=== PATIENT | male | born 1945 | race Caucasian/White ===

== ENCOUNTER 2018-06-08 09:19 | Outpatient (REF) | payer MEDICARE, SELFPAY ==
[2018-06-08 14:07] LABS: ALT 80 U/L (12-78); AST 94 U/L (15-37); Alkaline Phosphatase 75 U/L (46-116); Anion Gap 9.2 mmol/L (3-11); BUN 20 mg/dL (7-18); Bilirubin, Total 0.8 mg/dL (0.2-1.0); CO2 27.8 mmol/L (21.0-32.0); CREATININE 0.99 mg/dL (0.70-1.30); Calcium 9.1 mg/dL (8.5-10.1); Chloride 104 mmol/L (98-107); Glucose 92 mg/dL (70-100); Sodium 141 mmol/L (136-145); Total Protein 7.6 g/dL (6.4-8.2)
[2018-06-08 16:02] LABS: Iron 193 ug/dL (50-175); Total Iron Binding Capacity 320 ug/dL (250-450); Transferrin Sat 60 % (20-55)
[2018-06-08 16:27] LABS: Ferritin 528 ng/mL (8-388)
[2018-06-09 10:20] LABS: HBs Antibody, Quant <3.1 mIU/mL; Hepatitis B Surface Ab Negative; Hepatitis C Ab w Rflx HCV PCR Negative (NEGAT)
[2018-06-09 10:29] LABS: Hepatitis B Surface Ag Negative (NEGAT)
== END 2018-06-08 09:39 ==
LOC: NCHCN 09:19
PROVIDERS: PCP Nurse Practitioner Family; Visit Provider Internal Medicine
DX: I10 Essential (primary) hypertension (principal); I83.90 Asymptomatic varicose veins of unspecified lower extremity; R94.5 Abnormal results of liver function studies; I87.2 Venous insufficiency (chronic) (peripheral); Z11.59 Encounter for screening for other viral diseases
CPT/HCPCS: 80053; 86706; 86803; 87340; 82728; 83540; 83550

== ENCOUNTER 2018-06-22 09:30 | Outpatient (REF) | payer MEDICARE, SELFPAY ==
[2018-06-22 14:06] LABS: Abs Immature Grans 0.01 k/cumm (0.0-0.09); Absolute Basophil Count 0.03 k/cumm (0.0-0.2); Absolute Eosinophil Count 0.13 k/cumm (0.0-0.7); Absolute Monocyte Count 0.38 k/cumm (0.11-0.7); Absolute Neutrophil Count 1.85 k/cumm (1.2-6.7); Basophils % 0.9; Eosinophils % 3.9; HCT 43.6 % (40.0-50.0); HGB 14.7 g/dL (13.5-17.5); Immature Grans % 0.3; Lymphocytes % 27.3; Mean Corp. HGB Concentration 33.7 g/dL (32.0-36.0); Mean Corpuscular Hemoglobin 37.2 pg (27.0-33.0); Mean Corpuscular Volume 110.4 fL (80-95); Monocytes % 11.5; Neutrophils % 56.1; Platelet Count 201 x1000/uL (130-400); RBC 3.95 m/cumm (4.50-6.00); RBC Distribution Width 13.2 % (11.8-14.1)
[2018-06-22 14:42] LABS: Diff Comment RBC Morph Reviewed; Macrocytosis 3+
[2018-06-22 14:51] LABS: Iron 159 ug/dL (50-175); Total Iron Binding Capacity 309 ug/dL (250-450); Transferrin Sat 51 % (20-55)
[2018-06-22 14:57] LABS: ALT 49 U/L (12-78); AST 57 U/L (15-37); Alkaline Phosphatase 76 U/L (46-116); Bilirubin, Direct 0.21 mg/dL (0.00-0.20); Bilirubin, Total 0.7 mg/dL (0.2-1.0); Total Protein 7.3 g/dL (6.4-8.2)
[2018-06-22 15:22] LABS: Ferritin 384 ng/mL (8-388)
[2018-06-26 03:20] LABS: Specimen WB Whole Blood
== END 2018-06-22 09:50 ==
LOC: NCHCN 09:30
PROVIDERS: PCP Nurse Practitioner Family; Visit Provider Internal Medicine
DX: R94.5 Abnormal results of liver function studies (principal); R79.0 Abnormal level of blood mineral; E83.118 Other hemochromatosis
CPT/HCPCS: 80076; 81256; 82728; 83540; 83550; 85025

== ENCOUNTER 2018-12-03 15:44 | Outpatient (REF) | payer MEDICARE, BC, SELFPAY ==
[2018-12-03 21:39] LABS: HGB 14.8 g/dL (13.5-17.5); Mean Corp. HGB Concentration 34.4 g/dL (32.0-36.0); Mean Corpuscular Volume 110.5 fL (80-95); Mean Platelet Volume 10.6 fL (8.0-11.0); Platelet Count 211 x1000/uL (130-400); RBC 3.89 m/cumm (4.50-6.00); RBC Distribution Width 14.9 % (11.8-14.1); White Blood Cell Count 4.91 k/cumm (4.4-10.8)
[2018-12-03 22:07] LABS: ALT 22 U/L (16-63); AST 23 U/L (15-37); Albumin 3.8 g/dL (3.4-5.0); Alkaline Phosphatase 88 U/L (46-116); Bilirubin, Total 1.1 mg/dL (0.2-1.0); Total Protein 8.1 g/dL (6.4-8.2); Vitamin B12 247 pg/mL (193-986)
[2018-12-03 22:30] LABS: Bilirubin, Direct 0.28 mg/dL (0.00-0.20)
== END 2018-12-03 16:04 ==
LOC: NCHCN 15:44
PROVIDERS: PCP Nurse Practitioner Family; Visit Provider Internal Medicine
DX: D75.89 Other specified diseases of blood and blood-forming organs (principal); R79.0 Abnormal level of blood mineral; R94.5 Abnormal results of liver function studies
CPT/HCPCS: 80076; 85027; 82607

== ENCOUNTER 2018-12-14 00:32 | Outpatient (CLI) | payer MEDICARE, BC, SELFPAY ==
--- NOTE | 2018-12-14 08:00 | DI.US_ITS ---
SYMPTOM/DIAGNOSIS: ABNL LFT'S R94.5 ABDOMINAL ULTRASOUND: 12/14 The visualized liver parenchyma is normal in appearance. There is no evidence of cholelithiasis or biliary dilatation. Note is made of mass-like area of heterogeneous decreased echogenicity of the pancreatic mid body measuring up to about 4.5 cm in diameter. The possibility of pancreatic mass is raised. Correlation with CT recommended. The kidneys are unremarkable in appearance with no evidence of urinary tract calcification or obstruction. The spleen appears normal. Abdominal aorta and IVC are of normal diameter. CONCLUSION: No evidence of cholelithiasis or biliary dilatation. Incidental finding of suspected mass of the body of the pancreas. Correlation with CT recommended.
== END 2018-12-14 00:52 ==
PROVIDERS: PCP Nurse Practitioner Family; Visit Provider Internal Medicine
DX: R94.5 Abnormal results of liver function studies (principal); K86.89 Other specified diseases of pancreas
CPT/HCPCS: 76700

== ENCOUNTER 2018-12-21 00:58 | Outpatient (CLI) | payer MEDICARE, BC, SELFPAY ==
[2018-12-21] MEDS: Omnipaque 350 MG/ML 100 ML BTL IV (08:30)
[2018-12-21] MEDS: Omnipaque 350 MG/ML 50 ML BTL PO (08:45)
--- NOTE | 2018-12-21 08:49 | DI.CT_ITS ---
EXAM: CT ABDOMEN W CLINICAL HISTORY: OTHER SPECIFIED DISEASE OF PANCREAS, K86.89 TECHNIQUE: CT examination of the abdomen was performed with a bolus infusion of 100 cc of Omnipaque 350. COMPARISON: US ABDOMEN from 12/14/2018 FINDINGS: Images obtained through the lung bases are unremarkable. Liver and spleen are unremarkable in appea nicki. Adrenals and kidneys are unremarkable. Abdominal aorta is of normal diameter and no major va scular abnormality is seen. Recent ultrasound showed heterogeneous mass of the mid pancreatic body. This is again identified on CT and is of relatively low and fairly homogeneous attenuation. This appears to arise from or adjace nt to the body of the pancreas and encases branches of the superior mesenteric vein. This measures a bout 6 x 3 cm in diameter on transaxial images. No retroperitoneal adenopathy identified. Pancreati c duct is normal in appearance. Gallbladder is normal. IMPRESSION: Indeterminate pancreatic mass, additional evaluation with pancreatic MRI recommended.
== END 2018-12-21 01:18 ==
PROVIDERS: PCP Nurse Practitioner Family; Visit Provider Internal Medicine
DX: K86.89 Other specified diseases of pancreas (principal)
CPT/HCPCS: 74160; J3490; Q9967

== ENCOUNTER 2019-06-07 12:12 | Outpatient (REF) | payer MEDICARE, BC, SELFPAY ==
[2019-06-07 21:47] LABS: ALT 69 U/L (16-63); AST 93 U/L (15-37); Alkaline Phosphatase 100 U/L (46-116); Anion Gap 10.7 mmol/L (3-11); BUN 10 mg/dL (7-18); Bilirubin, Total 0.6 mg/dL (0.2-1.0); CO2 28.3 mmol/L (21.0-32.0); CREATININE 0.84 mg/dL (0.70-1.30); Chloride 105 mmol/L (98-107); Glucose 102 mg/dL (74-106); Potassium 4.4 mmol/L (3.5-5.1); Sodium 144 mmol/L (136-145); Total Protein 7.6 g/dL (6.4-8.2)
== END 2019-06-07 12:32 ==
LOC: NCHCN 12:12
PROVIDERS: PCP Nurse Practitioner Family; Visit Provider Internal Medicine
DX: I10 Essential (primary) hypertension (principal)
CPT/HCPCS: 80053

== ENCOUNTER 2019-12-17 04:29 | Outpatient (CLI) | payer MEDICARE, BC, SELFPAY ==
--- NOTE | 2019-12-17 | DI.CTLCSR_ITS ---
EXAM: CT CHEST LUNG CANCER SCREEN CLINICAL HISTORY: FORMER SMOKER Z87.891, SCREENING FOR CANCER Z12.9 TECHNIQUE: Imaging Protocol: Axial computed tomography images with coronal and sagittal reformatted images were created and reviewed COMPARISON: No exams were available for comparison FINDINGS: Tracheobronchial tree: Patent where visualized. Mediastinum and Cherelle: No dominant adenopathy or fluid collection. Pulmonary parenchyma: No consolidation or dominant measurable mass. Mild to moderate centrilobular em physema greatest in the superior segment of the right lower lobe. Lung Nodules: None. Pleura: No effusion or pneumothorax. Heart: The heart is not dilated. Mild coronary artery calcifications are seen. Aorta: Thoracic aorta non-dilated.Mild calcification Upper abdomen: Unremarkable. Bones: Mild degenerative disc changes. Soft Tissues: Bilateral gynecomastia IMPRESSION: [id number] centrilobular emphysema. No mass or pulmonary nodules. Lung RADS Cat 1 - Negative: No nodules and definitely benign nodules modifier S Lung-RADS 1.0 CATEGORIES: Category 0 - Prior chest CT exam(s) being located for comparison. Category 1 - Annual screening in 12 months. No nodules or definitely benign nodules. Category 2 - Annual screening in 12 months. Benign appearance. Nodules with low likelihood of becomin g active cancer. Category 3 - 6-month follow-up. Probably benign. Short-term follow-up suggested. Nodules with low lik elihood of becoming active cancer. Category 4A - 3-month follow-up and CT/PET if >8 mm in size. Suspicious finding. Findings which requi re additional testing. Category 4B - Findings which require additional testing and tissue sampling. Suspicious finding. C Added to Any of the Above - History of prior lung cancer screening. S Added to Any of the Above - Significant unexpected other finding. RADIATION DOSE DELIVERED: Total DLP DATA REPOSITORY: All CT scans at this facility are submitted to the National Radiology Data Registry (NRDR) Dose Index Registry (DIR) with the [employer] (ACR). RADIATION OPTIMIZATION: All CT scans at this facility use at least one of these dose optimization te chniques: automated exposure control; mA and/or kV adjustment per patient size (includes targeted exa ms where dose is matched to clinical indication); or iterative reconstruction.
== END 2019-12-17 04:49 ==
PROVIDERS: PCP Nurse Practitioner Family; Visit Provider Internal Medicine
DX: Z12.2 Encounter for screening for malignant neoplasm of respiratory organs (principal); Z87.891 Personal history of nicotine dependence; J43.2 Centrilobular emphysema
CPT/HCPCS: G0297

== ENCOUNTER 2020-07-24 01:38 | Emergency (ER) | payer MEDICARE, BC, SELFPAY ==
[2020-07-24] VITALS (32 sets, daily range): BP systolic 147–168; BP diastolic 70–105; PULSE 81–116; RESP 15–26; TEMP 36.7; O2SAT 95–99
--- NOTE | 2020-07-24 01:30 | RT.EKG_ITS ---
APPROVED REPORT Exam: Resting ECG Patient Location: E HR:108 bpm ECG Measurements Heart Rate 108 AXIS AL 171 P 78 QRSd 133 QRS -64 QT 373 T 47 QTc 500 Conclusion Sinus tachycardia...rate> 99 RBBB and LAFB...QRSd >120mS, axis(-40,240) Physician: miniml depression in V2 and V3, inverted T wave in V 1 and 2. RBBB. No stemi
--- NOTE | 2020-07-24 01:45 | DI.CT_ITS ---
EXAM: CT ABDOMEN PELVIS W CLINICAL HISTORY: hematemasis. TECHNIQUE: Imaging Protocol: Axial computed tomography images with coronal and sagittal reformatted images were created and reviewed CONTRAST MATERIAL: Intravenous: Omnipaque 100cc Oral: None COMPARISON: CT CT ABDOMEN W from 12/21/2018 FINDINGS: VISUALIZED LUNG BASES: No nodules nor pleural effusions evident. ABDOMEN: Lower esophagus wall in the field of view of this study is thickened. There is perihepatic ascites and there is also moderate amount of free fluid in the dependent aspect of the pelvis. LIVER: Liver appears somewhat cirrhotic. Abnormal prominent area of hypodensity in the right hepatic lobe is noted which may be fatty change but correlation blood work recommended. This requires follo w-up to rule out neoplasm. 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 No obvious gallstones. CBD is not dilated. PANCREAS: Abnormal appearance of the pancreatic head appearing edematous and there is pseudocyst form ation within the pancreas and extending into the lesser sac. This measures approximately 4 cm wide b y 1.8 cm AP by 4 cm cephalocaudal. SPLEEN: Spleen is slightly enlarged. There are no intrasplenic lesions. The splenic vein is patent behind the pancreatic body and tail but there is occlusion of the portal vein confluence. The superi or mesenteric vein is also thrombosed as is the main portal vein and there is cavernous transformatio n. Multiple varices are seen. ADRENALS: There are no significant adrenal masses. KIDNEYS:No cysts evident. No solid renal masses. No calculi nor hydronephrosis.. ABDOMINAL AORTA: Abdominal aorta is not enlarged. LYMPH NODES:There is no retroperitineal nor paraaortic adenopathy. ABDOMINAL WALL/GI: No evidence of significant anterior abdominal wall hernia. No bowel obstruction. PELVIS: GI: Appendix is filled with dense material. Appendix diameter is 7-8 millimeters.There is extensive sigmoid diverticulosis. No obvious acute diverticulitis.There is significant amount of fluid in the pelvis which I feel is most probably related to findings around the pancreas more so than the sigmoid . LYMPH NODES: There is no intrapelvic nor inguinal adenopathy. REPRODUCTIVE: Prostate is not enlarged. URINARY BLADDER: Uniform thickening of the urinary bladder wall is noted. OSSEOUS: No significant osseous lesions. IMPRESSION: 1. Severe acute pancreatitis including developing pancreatic pseudocyst at the level of the pancreati c neck which is both intra and extra parenchymal and extending into the lesser sac with measurements as described above. 2. 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 There are multiple varices including impressive gallbladder wall varices. 3. Abnormal hypodense right hepatic lobe area may or may not be related to the cavernous transformati on versus fatty parenchymal change versus possible developing neoplasm and this require close follow- up. 4. There is moderate amount of ascites in the upper abdomen and pelvis. Extensive sigmoid diverticulosis but no obvious acute diverticulitis. The appendix is filled with de nse material but there is no obvious evidence of acute appendicitis. RADIATION DOSE DELIVERED: 819.99mGy.cm Total DLP DATA REPOSITORY: All CT scans at this facility are submitted to the National Radiology Data Registry (NRDR) Dose Index Registry (DIR) with the [employer] (ACR). RADIATION OPTIMIZATION: All CT scans at this facility use at least one of these dose optimization te chniques: automated exposure control; mA and/or kV adjustment per patient size (includes targeted exa ms where dose is matched to clinical indication); or iterative reconstruction.
--- NOTE | 2020-07-24 02:05 | W.ED.GENAD ---
Discharge Plan Disposition Patient Disposition: [facility] Condition: Improving Discharge Details Clinical Impression: Hematemesis, Gastritis, Acute pancreatitis, Nausea & vomiting, Pancreatic pseudocyst Primary Care Provider: Vita Ortiz ED Provider: Nasim Jacobson Home Meds and New Rx's Prescriptions: No Action metoprolol succinate 50 mg tablet extended release 24 hr 50 mg PO DAILY RF: 0 naproxen sodium [Aleve] 220 mg Tablet 440 mg PO PRN PRNRF: 0 aspirin 81 mg Tablet 81 mg PO DAILY RF: 0 Medical Decision Making Patient is a 75-year-old male with a past medical history of hypertension, suspected distant heart attack over 40 years ago, chronic arthritis, chronic alcohol use who presents today for evaluation of hematemesis. Patient states that for the last 4 to 5 days he has been vomiting, multiple times per day. However this evening he developed hematemesis, he has vomited twice this evening with notable amounts of blood describing it is roughly a cup of blood each time. He denies any dark or tarry stools. He does have some mild epigastric pain. He denies any blood thinner use aside for a daily aspirin occasionally. He denies any history of GI bleed. Patient states that normally he drinks 3 or 4 martinis every night and has been doing this for quite some time. He does take 2 Aleve daily, and has not had any recent increase in this. He denies any other complaints at this time. No other modifying factors. Is not been able to keep any significant amounts of food down over the last 2 or 3 days. Exam demonstrates dry mucous membranes, mild epigastric tenderness. Patient's blood pressure is stable, pulse is mildly elevated. Differential includes pancreatitis or chronic alcoholic gastritis as the initial cause of his vomiting. However he subsequent bleeding is likely from either alcoholic gastritis or potential esophageal varices. I feel the latter is less likely. We will give Protonix, famotidine, GI cocktail, CT scan of his abdomen, monitor closely and reassess. 3:50 AM Laboratory work-up is returned, hemoglobin is 12.6, which appears to have a two-point drop from his last hemoglobin however last hemoglobin was 2 years ago. MCV is 108, concerning for macrocytic anemia likely secondary to his chronic alcohol use. INR is slightly elevated at 1.3, PT is elevated at 12.7. Renal function stable. Bilirubin mildly elevated at 1.9, conjugated bili is 0.6. Lipase is high at 6000. Troponin EKG are stable. Alcohol level negative. CT scan shows evidence of acute on chronic pancreatitis with a chronic pancreatic pseudocyst. There is also evidence of thickening of the esophagus, as well as gallbladder varices, heterogenous hepatic attenuation likely related to a cavernous transformation of the portal vein, chronic thrombosis noted in the upper abdominal varices, and no other chronic components per virtual radiology. Signs and symptoms appear consistent with alcoholic gastritis and pancreatitis as a cause of the patient's bleeding and symptoms. Vomiting has stabilized here. Patient's vital signs have normalized. Blood pressure remained stable, heart rate is improved. We have no beds currently available here at [facility] for admission. [facility] is not excepting. [facility] is full. I do feel that a lateral transfer is appropriate at this time. We did contact [facility], discussed the case with Dr. Mayer. He agrees with the assessment and plan and has agreed to accept the patient for admission. I have extensively reviewed the treatment plan with the patient. I have addressed all patient concerns at this time. I have also discussed the plan with the admitting physician and they agree with the current assessment and plan and have agreed to assume responsibility for the patient. All parties demonstrate verbal understanding and agreement with our assessment and plan at this time. The documentation in this chart was dictated using [employer] dictation software. Please excuse any dictation errors. At time of transfer the patient was reassessed and continued to demonstrate current medical stability. No signs of acute respiratory distress requiring intubation, hemodynamic instability requiring pressor support, or rapidly declining mental status. The patient is stable for transport. FINDINGS: Mediastinal space: Thickened esophagus may be secondary to reported vomiting versus GERD. Liver: Heterogeneous hepatic attenuation may reflect artifact related to cavernous transformation of the portal vein.. Gallbladder and bile ducts: Normal. No calcified stones. No ductal dilation. Pancreas: Findings compatible with acute on chronic pancreatitis with chronic pancreatitis manifest as what appears to be a pancreatic pseudocyst measuring up to 4 by 1.4 centimeters in the lesser sac, and acute pancreatitis manifest as peripancreatic stranding. Spleen: Normal. No splenomegaly. Adrenal glands: Normal. No mass. Kidneys and ureters: Nonobstructive right-sided micro-nephrolithiasis is noted. Stomach and bowel: Unremarkable. No obstruction. No mucosal thickening. Appendix: No evidence of appendicitis Intraperitoneal space: Moderate pelvic ascites likely pancreatic ascites. 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 Gallbladder varices incidentally noted . Lymph nodes: Unremarkable. No enlarged lymph nodes. Urinary bladder: Unremarkable as visualized. Reproductive: Unremarkable as visualized. Bones/joints: Unremarkable. No acute fracture. Soft tissues: Unremarkable. IMPRESSION: 1. Thickened esophagus may be secondary to reported vomiting versus GERD. 2. Findings compatible with acute on chronic pancreatitis with chronic pancreatitis manifest as what appears to be a pancreatic pseudocyst measuring up to 4 by 1.4 centimeters in the lesser sac, and acute pancreatitis manifest as peripancreatic stranding. 3. 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 4. 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 Gallbladder varices incidentally noted . 5. Heterogeneous hepatic attenuation may reflect artifact related to cavernous transformation of the portal vein.. 6. Moderate pelvic ascites likely pancreatic ascites. Thank you for allowing us to participate in the care of your patient. Dictated and Authenticated by: Nikolas Tena MD 07/24/2020 3:17 AM Eastern Time ([place] & [place]) HPI General Date/Time Provider Initiated Documentation: 07/24/20 01:40. HPI Narrative: Patient is a 75-year-old male with a past medical history of hypertension, suspected distant heart attack over 40 years ago, chronic arthritis, chronic alcohol use who presents today for evaluation of hematemesis. Patient states that for the last 4 to 5 days he has been vomiting, multiple times per day. However this evening he developed hematemesis, he has vomited twice this evening with notable amounts of blood describing it is roughly a cup of blood each time. He denies any dark or tarry stools. He does have some mild epigastric pain. He denies any blood thinner use aside for a daily aspirin occasionally. He denies any history of GI bleed. Patient states that normally he drinks 3 or 4 martinis every night and has been doing this for quite some time. He does take 2 Aleve daily, and has not had any recent increase in this. He denies any other complaints at this time. No other modifying factors. Is not been able to keep any significant amounts of food down over the last 2 or 3 days. Related Data Home Medications Medication Instructions Recorded Confirmed aspirin 81 mg PO DAILY 07/24/20 07/24/20 metoprolol succinate 50 mg PO DAILY 07/24/20 07/24/20 naproxen sodium [Aleve] 440 mg PO PRN PRN 07/24/20 07/24/20 General Stated Complaint: Nausea/Vomit/Diar DAMEON: 3 Review of Systems All systems reviewed & are unremarkable except as noted in HPI and below PFSH Social History Smoking/Tobacco Use Status: Current-Occasional Smoking risk assessment performed?: Yes Alcohol Intake: current Alcohol Intake frequency: 0-2 drinks per day Alcohol type: hard liquor Do you feel safe at home: Yes Do you feel safe in your relationship?: Yes Exam Narrative Exam Narrative: 1.Const: Well-nourished, Well-developed, appearing stated age 2.Eyes: PERRL, no conjunctival injection, and symmetrical lids. 3.ENT: Atraumatic external nose and ears. Notably dry MM. Neck: Symmetric, trachea midline, No thyromegaly. 4.CVS: +S1/S2, No murmurs or gallops. Peripheral pulses 2+ and equal in all extremities. Brisk capillary refill in all extremities. 5.RESP: Unlabored respiratory effort. Clear to auscultation bilaterally. No wheezes rales or rhonchi 6.GI: Soft, nondistended, mild epigastric tenderness. No signs of an acute surgical abdomen 7.MSK: Normocephalic/Atraumatic, Extremities w/o deformity or ttp No cyanosis or clubbing, Normal movement of all extremities 8.Skin: Warm, Dry. No rashes or lesions. 9.Neuro: mosaic tiler II-XII grossly intact. Sensation grossly intact, no focal neurologic deficits. 10.Psych: (AAO) x3. Appropriate mood and affect Course Vital Signs Vital signs: Vital Signs Temperature 36.7 C 07/24/20 01:42 Pulse 116 H 07/24/20 01:42 Respiratory Rate 18 07/24/20 01:42 Blood Pressure 160/73 H 07/24/20 01:42 Pulse Oximetry 98 07/24/20 01:42 Temperature 36.7 C 07/24/20 01:42 Pulse 116 H 07/24/20 01:42 Respiratory Rate 18 07/24/20 01:42 Respiratory Effort Non-Labored 07/24/20 01:47 Blood Pressure 160/73 H 07/24/20 01:42 Blood Pressure Position Sitting 07/24/20 01:42 Pulse Oximetry 98 07/24/20 01:42 Oxygen Delivery Method Room Air 07/24/20 01:42 Oxygen Flow Rate 0 07/24/20 01:42
[2020-07-24] MEDS: Sucralfate 1 GM TAB PO (02:14)
[2020-07-24 02:16] LABS: Abs Immature Grans 0.04 10^3/uL (0.0-0.06); Absolute Basophil Count 0.02 10^3/uL (0.0-0.2); Absolute Eosinophil Count 0.02 10^3/uL (0.0-0.7); Absolute Lymphocyte Count 0.37 10^3/uL (1.2-3.4); Absolute Monocyte Count 0.89 10^3/uL (0.1-0.8); Absolute Neutrophil Count 7.89 10^3/uL (1.2-6.7); Basophils % 0.2; Eosinophils % 0.2; HCT 36.9 % (40.0-50.0); HGB 12.6 g/dL (13.5-17.5); Immature Grans % 0.4; MCH 37.1 pg (27.0-33.0); MCHC 34.1 % (32.0-36.0); MCV 108.5 fL (80-95); MPV 10.3 fL (8.0-11.0); Monocytes % 9.6; Neutrophils % 85.6; Nucleated RBC 0 %; Platelet Count 177 10^3/uL (130-400); RDW 13.7 % (11.8-14.1); RDW-SD 54.4 fL; WBC 9.23 10^3/uL (4.4-10.8)
[2020-07-24] MEDS: Normal Saline 1,000 ML 1000 ML IV (02:16)
[2020-07-24] MEDS: Ondansetron 4 MG/2 ML VIAL IVP (02:16)
[2020-07-24] MEDS: FAMOTIDINE 20 MG/50 ML BAG 100 MG IVPB (02:20)
[2020-07-24 02:30] LABS: Diff Comment Diff Reviewed; Macrocytosis 1+
[2020-07-24 02:31] LABS: PTT Activated 23.2 sec (21.0-27.5)
[2020-07-24 02:37] LABS: ALT 27 U/L (16-63); AST 54 U/L (15-37); Albumin 3.2 g/dL (3.4-5.0); Alkaline Phosphatase 102 U/L (46-116); Anion Gap 8.1 mmol/L (3-11); BUN 24 mg/dL (7-18); Bilirubin, Total 1.9 mg/dL (0.2-1.0); CO2 30.9 mmol/L (21.0-32.0); Calcium 9.6 mg/dL (8.5-10.1); Chloride 100 mmol/L (98-107); Glucose 124 mg/dL (74-106); Potassium 3.7 mmol/L (3.5-5.1); Sodium 139 mmol/L (136-145)
[2020-07-24 02:39] LABS: ETHANOL BLOOD < 3.0 mg/dL (<3); Lipase 6036 U/L (73-393); Troponin I < 0.05 ng/mL (<0.06)
[2020-07-24 02:43] LABS: INR 1.3 (0.9-1.1); Prothrombin Time 12.7 sec (9.3-11.0)
[2020-07-24 02:59] LABS: Bilirubin, Direct 0.6 mg/dL (0.0-0.2)
[2020-07-24] MEDS: Normal Saline - Diluent 50 ML VIAL IV (03:09)
[2020-07-24] MEDS: Normal Saline Flush 10 ML SYR IVP (03:10)
[2020-07-24] MEDS: Pantoprazole 40 MG VIAL 80 MG IVP (03:14)
--- NOTE | 2020-07-24 03:18 | DI.VRAD_ITS ---
PROCEDURE INFORMATION: Exam: CT Abdomen And Pelvis With Contrast Exam date and time: 07/24/2020 1:55 AM Age: 75 years old Clinical indication: Vomiting; Patient HX: Hematemesis, TECHNIQUE: Imaging protocol: Computed tomography of the abdomen and pelvis with contrast. Radiation optimization: All CT scans at this facility use at least one of these dose optimization techniques: automated exposure control; mA and/or kV adjustment per patient size (includes targeted exams where dose is matched to clinical indication); or iterative reconstruction. Contrast material: VISIPAQUE 320; Contrast volume: 100 ml; Contrast route: INTRAVENOUS (IV); COMPARISON: CT ABDOMEN W 12/21/2018 8:32 AM FINDINGS: Mediastinal space: Thickened esophagus may be secondary to reported vomiting versus GERD. Liver: Heterogeneous hepatic attenuation may reflect artifact related to cavernous transformation of the portal vein.. Gallbladder and bile ducts: Normal. No calcified stones. No ductal dilation. Pancreas: Findings compatible with acute on chronic pancreatitis with chronic pancreatitis manifest as what appears to be a pancreatic pseudocyst measuring up to 4 by 1.4 centimeters in the lesser sac, and acute pancreatitis manifest as peripancreatic stranding. Spleen: Normal. No splenomegaly. Adrenal glands: Normal. No mass. Kidneys and ureters: Nonobstructive right-sided micro-nephrolithiasis is noted. Stomach and bowel: Unremarkable. No obstruction. No mucosal thickening. Appendix: No evidence of appendicitis. Intraperitoneal space: Moderate pelvic ascites likely pancreatic ascites. 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 Gallbladder varices incidentally noted . Lymph nodes: Unremarkable. No enlarged lymph nodes. Urinary bladder: Unremarkable as visualized. Reproductive: Unremarkable as visualized. Bones/joints: Unremarkable. No acute fracture. Soft tissues: Unremarkable. IMPRESSION: 1. Thickened esophagus may be secondary to reported vomiting versus GERD. 2. Findings compatible with acute on chronic pancreatitis with chronic pancreatitis manifest as what appears to be a pancreatic pseudocyst measuring up to 4 by 1.4 centimeters in the lesser sac, and acute pancreatitis manifest as peripancreatic stranding. 3. 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 4. 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 Gallbladder varices incidentally noted . 5. Heterogeneous hepatic attenuation may reflect artifact related to cavernous transformation of the portal vein.. 6. Moderate pelvic ascites likely pancreatic ascites. Dictated and Authenticated by: Nikolas Tena MD. Ordering:BINH Rouse MD
[2020-07-24] MEDS: PANTOPRAZOLE 80 MG in Normal Saline 100 ML 10 MG IV (03:21)
[2020-07-24] MEDS: Ondansetron 4 MG/2 ML VIAL (03:31)
[2020-07-24 04:33] LABS: COVID-19 PCR Negative (Negative)
--- NOTE | 2020-07-27 18:05 | NUR.NOTE ---
Nursing Note: Asked by the nursing tumblers supervisor Jackie Sigala [facility] Ofelia Ramirez
== END 2020-07-24 07:18 | disposition short-term general hospital (02) ==
PROVIDERS: Emergency Provider Student in an Organized Health Care Education/Training Program; PCP Nurse Practitioner Family
DX: K92.0 Hematemesis (principal); K29.01 Acute gastritis with bleeding; F10.10 Alcohol abuse, uncomplicated; K85.20 Alcohol induced acute pancreatitis without necrosis or infection; K86.3 Pseudocyst of pancreas; R18.8 Other ascites; R74.8 Abnormal levels of other serum enzymes; Z03.818 Encounter for observation for suspected exposure to other biological agents ruled out
CPT/HCPCS: 36415; 80053; 83690; 87635; 93005; 96361; 96365; 96366; 96367; 96375; 96376; 99285; 74177; 80320; 82248; 83735; 84484; 85025; 85610; 85730; 93010; J2405